=== PATIENT | female | born 1995 | race Caucasian/White ===

== ENCOUNTER 2016-06-09 09:36 | Inpatient (IN) | payer MEDICAID ==
[~2016-06-09] VITALS: Ht 175.3 cm; Wt 89.6 kg
[2016-06-09 09:51] VITALS: BP 137/81; PULSE 91; RESP 18
[2016-06-09] MEDS ORDERED: PRENAT PO (10:16)
[2016-06-09] MEDS: DEXTROSE 5%-LR 1,000 ML IV SCH ×2 (11:11→19:19)
--- NOTE | 2016-06-09 11:39 | RADRPT ---
PROCEDURE: US OB biophysical profile. CLINICAL INDICATION: decreased movements, contractions TECHNIQUE: Multiple sonographic images of the pelvis were obtained. The images were reviewed on a PACS workstation. COMPARISON: No prior studies are available for comparison. FINDINGS: There is a single viable intrauterine gestation. Cardiac activity is present with 146 beats per min false pass. There is a vertex presentation. The placenta is posterior. There is no evidence of placental abruption. There is a decreased amount of amniotic fluid with an JUMA = 6.0 cm. Biophysical profile: movement 2/2 tone 2/2. breathing 2/2 JUMA 2/2 Total 09/30 RPTAT: AA . IMPRESSION: Normal biophysical profile. Oligohydramnios. . .Sheng Mejia MD, Date Time Electronically viewed and signed by .Sheng Mejia MD, on 06/09/2016 11:38 .S/
[2016-06-09] MEDS ORDERED: METHYLERGONOVINE 0.2 MG INJ IM PRN (17:00)
[2016-06-09] MEDS ORDERED: OXYTOCIN 30 UNITS/LR 500 ML IV PRN (17:00)
[2016-06-09] MEDS ORDERED: MINERAL OIL LIGHT 10 ML VIAL TOP ONE (17:00)
[2016-06-09] MEDS ORDERED: LACTATED RINGER'S 1,000 ML IV PRN ×2 (17:00)
[2016-06-09] MEDS ORDERED: DEXTROSE 5%-LR 1,000 ML IV PRN (17:00)
[2016-06-09] MEDS ORDERED: CARBOPROST 250 MCG INJ IM PRN (17:00)
[2016-06-09] MEDS ORDERED: DINOPROSTONE 10 MG VAG SUPP VAG SCH (17:00)
[2016-06-09] MEDS ORDERED: MISOPROSTOL 200 MCG TAB PR PRN (17:00)
[2016-06-09] MEDS ORDERED: OXYTOCIN 30 UNITS/LR 500 ML IV SCH (17:00)
[2016-06-09] MEDS ORDERED: BUTORPHANOL 2 MG INJ IV PRN (17:00)
[2016-06-09] MEDS ORDERED: IBUPROFEN 600 MG TAB PO PRN (17:00)
[2016-06-09] MEDS ORDERED: LIDOCAINE 1% (MPF) 30 ML INJ INJ PRN (17:00)
--- NOTE | 2016-06-09 17:02 | TRIAGE ---
OB Triage Datetime Report Generated by CPN: 06/09/2016 17:01 Datetime: 06/09/2016 16:55 Pain Assessment Pain Scale: 0 Pain Presence: None/Denies Pain Relief Measures: Comfort Measures Datetime: 06/09/2016 16:49 Time of Arrival: 06/09/2016 16:49 EGA: 39.5 Arrived By: Ambulatory Arrived From: TRIAGE Datetime: 06/09/2016 16:44 Labor Evaluation Frequency: 10 Monitor Mode: External Duration (sec)2399: 60-90 Quality: Mild Pattern: Normal: <= 5 Contractions in 10 Minutes Resting Tone [place]: Relaxed Heart Rate FHR Baseline Rate: 135 FHR Baseline Changes: No Baseline Change Variability: Moderate 6-25 bpm Accelerations: 15X15 Decelerations: Late Comments: Lx1 Datetime: 06/09/2016 16:00 Labor Evaluation Frequency: 2-10 Monitor Mode: External Duration (sec)2399: 50-70 Quality: Mild Pattern: Normal: <= 5 Contractions in 10 Minutes Resting Tone [place]: Relaxed Heart Rate FHR Baseline Rate: 135 FHR Baseline Changes: No Baseline Change Variability: Moderate 6-25 bpm Accelerations: 15X15 Decelerations: Variable Category: Category II Comments: Vx1 Datetime: 06/09/2016 15:24 Vaginal Exam Dilatation (cms): 0.0 Effacement (%): 50 Station: -2 Exam By: CKUNIYOSHI Vaginal Bleeding: None Cervix, Consistency: Moderate Cervix, Position: Posterior Datetime: 06/09/2016 15:15 ROM Test Kit: Negative Datetime: 06/09/2016 15:00 Labor Evaluation Frequency: 2-5 Monitor Mode: External Quality: Mild Pattern: Normal: <= 5 Contractions in 10 Minutes Resting Tone [place]: Relaxed Contraction Comments: NOT READING ALL CONTRACTIONS - MONITOR FLIPPED Heart Rate FHR Baseline Rate: 135 FHR Baseline Changes: No Baseline Change Variability: Moderate 6-25 bpm Accelerations: 15X15 Decelerations: None Pain Assessment Pain Scale: 7 Pain Presence: Intermittent Pain Type: Cramping; Contraction Pain Location: Abdomen; Back Datetime: 06/09/2016 14:00 Stage of : OB Triage Labor Evaluation Frequency: 2-5 Monitor Mode: External Duration (sec)2399: 50-90 Quality: Mild Pattern: Normal: <= 5 Contractions in 10 Minutes Resting Tone [place]: Relaxed Heart Rate FHR Baseline Rate: 135 FHR Baseline Changes: No Baseline Change Variability: Moderate 6-25 bpm Accelerations: 15X15 Decelerations: None Pain Assessment Pain Scale: 8 Pain Presence: Intermittent Pain Type: Cramping; Contraction Pain Location: Abdomen; Back Datetime: 06/09/2016 13:00 Labor Evaluation Frequency: 2-5 Monitor Mode: External Duration (sec)2399: 60-90 Quality: Mild Pattern: Normal: <= 5 Contractions in 10 Minutes Resting Tone [place]: Relaxed Heart Rate FHR Baseline Rate: 135 Monitor Mode: External US FHR Baseline Changes: No Baseline Change Variability: Moderate 6-25 bpm Accelerations: 15X15 Decelerations: None Datetime: 06/09/2016 12:02 Labor Evaluation Frequency: 2-7 Monitor Mode: External Duration (sec)2399: 40-80 Quality: Mild Pattern: Normal: <= 5 Contractions in 10 Minutes Resting Tone [place]: Relaxed Heart Rate FHR Baseline Rate: 135 FHR Baseline Changes: No Baseline Change Variability: Moderate 6-25 bpm Accelerations: 15X15 Decelerations: None Category: Category I Pain Presence: Intermittent Pain Type: Cramping; Contraction; Pressure Pain Location: Abdomen; Back Datetime: 06/09/2016 12:01 Vaginal Exam Dilatation (cms): 0.0 Effacement (%): 50 Station: -3 Exam By: CKUNIYOSHI Vaginal Bleeding: None Cervix, Consistency: Soft Cervix, Position: Posterior Datetime: 06/09/2016 10:29 Labor Evaluation Frequency: 2-5 Monitor Mode: External Duration (sec)2399: 50-80 Quality: Mild Pattern: Normal: <= 5 Contractions in 10 Minutes Resting Tone [place]: Relaxed Heart Rate FHR Baseline Rate: 135 Monitor Mode: External US FHR Baseline Changes: No Baseline Change Variability: Moderate 6-25 bpm Accelerations: 10X10 Decelerations: Late; Variable Category: Category II Comments: PERIODS OF MINIMAL VARIABLITY, WITH BASELINE OF 150BPM Pain Assessment Pain Scale: 8 Pain Presence: Constant Pain Type: Cramping; Pressure Pain Location: Abdomen; Back Pain Assessment Comments: PT REPORTS PAIN HAS INCREASED. Datetime: 06/09/2016 10:03 Vaginal Exam Dilatation (cms): 0.0 Effacement (%): 0 Station: -3 Exam By: CK Vaginal Bleeding: None Nitrazine: Negative Cervix, Consistency: Soft Cervix, Position: Posterior Datetime: 06/09/2016 09:55 Stage of : OB Triage Assessment Type: Triage Maternal Assessment Level of Consciousness: Fully Conscious Headache: Denies Blurred Vision: No Respiratory Effort: Unlabored; Regular Rhythm; Equal Expansion Breath Sounds, Left: Clear and Equal Breath Sounds, Right: Clear and Equal Nausea/Vomiting: Denies RUQ Epigastric Pain: Denies Lower Extremities Edema: None Degree: None Upper Extremities Edema: None Degree: None Facial Edema: None Temperature Route: Oral Fall Risk Assessment History of Falling: (0) No Secondary Diagnosis: (0) No Ambulatory Aid: (0) Bedrest/Nurse Assist IV Therapy: (0) No Gait: (0) Normal/Bedrest/Immobile Mental Status: (0) Oriented to Own Ability Fall Score: 0 Fall Risk Score Definition: No Risk: No action required Pain Assessment Pain Scale: 7 Pain Presence: Constant Pain Type: Cramping; Pressure Pain Location: Back Datetime: 06/09/2016 09:53 Time of Arrival: 06/09/2016 09:29 EGA: 39.5 Arrived By: Wheelchair Arrived From: Home Chief Complaint: POSSIBLE SROM @0830 WITH NO FURTHER LEAKING; CONSTANT LOWER BACK PAIN OF 7/10, ST ARTING @0830; OCCASSIONAL Movement: Present Contractions: Irregular Time Contractions Began: 06/09/2016 09:00 Rupture of Membranes: Unsure Vaginal Bleeding: None Vaginal Discharge: Denies Abdominal Trauma: Not Applicable Patient Complaints: Back Pain; Other Time Provider Notified: 06/09/2016 10:52 Provider Notified: DR. GUZMAN Initial Plan: R/O LABOR, R/O SROM; EFM x2, SVE, NITRAZINE Datetime: 06/09/2016 09:52 Presentation 'A': Cephalic
[2016-06-09 17:05] LABS: ADD SCAN DIFF NO
[2016-06-09 17:09] LABS: BASOPHILS % 0.4 % (0.0-2.0); EOSINOPHILS # 0.1 10^3/ul (0.0-0.5); EOSINOPHILS % 1.1 % (0.0-7.0); HEMATOCRIT 36.1 % (37.0-47.0); HEMOGLOBIN 11.8 g/dl (12.0-16.0); LYMPHOCYTES # 1.6 10^3/ul (0.8-2.9); LYMPHOCYTES % 20.5 % (18.0-55.0); MEAN CORPUSCULAR HEMOGLOBIN 29.7 pg (29.0-33.0); MEAN CORPUSCULAR HGB CONC 32.7 g/dl (32.0-37.0); MEAN CORPUSCULAR VOLUME 90.9 fl (72.0-104.0); MEAN PLATELET VOLUME 11.6 fl (7.4-10.4); MONOCYTE # 0.7 10^3/ul (0.3-0.9); MONOCYTES % 8.3 % (0.0-13.0); NEUTROPHIL # 5.4 10^3/ul (1.6-7.5); NEUTROPHILS % 69.2 % (30.0-74.0); PLATELET COUNT 185 10^3/UL (140-415); RED BLOOD COUNT 3.97 10^6/ul (4.20-5.40); RED CELL DISTRIBUTION WIDTH 13.9 % (11.5-14.5); WHITE BLOOD COUNT 7.9 10^3/ul (4.8-10.8)
[2016-06-09 17:21] LABS: INR 0.97; PROTIME 12.9 Sec (12.2-14.2)
[2016-06-09 17:22] LABS: PARTIAL THROMBOPLASTIN TIME 29.2 Sec (25.0-35.0)
[2016-06-09] MEDS ORDERED: DINOPROSTONE 10 MG VAG SUPP VAG ONE (21:30)
[2016-06-09] MEDS: BUTORPHANOL 2 MG INJ IV PRN (23:50)
[2016-06-10] MEDS: BUTORPHANOL 2 MG INJ IV PRN (02:21)
[2016-06-10] MEDS ORDERED: NALOXONE (0.4 MG/ML) INJ IV PRN (04:00)
[2016-06-10] MEDS ORDERED: FENTAnyl 2MCG/ML-ROPIV 0.2% 100 ML BAG EPI SCH (04:00)
[2016-06-10] MEDS ORDERED: EPHEDrine SULFATE 50 MG/5 ML SYG IV PRN (04:00)
[2016-06-10] MEDS: ONDANSETRON 4 MG INJ IV PRN ×2 (07:39→11:05)
[2016-06-10] MEDS ORDERED: OXYTOCIN 30 UNITS/LR 500 ML IV SCH (08:00)
[2016-06-10] MEDS: DEXTROSE 5%-LR 1,000 ML IV SCH (08:01)
--- NOTE | 2016-06-10 11:55 | LDN ---
Date/Time of Note Date/Time of Note DATE: 06/10/16 TIME: 11:49 Delivery Summary Normal spontaneous vaginal delivery of a baby girl from 0A position shoulders delivered without any difficulty rest of the baby's body follow cord was clamped after stopped pulsation nasal oropharyngeal suction was performed by the team present placenta spontaneous expulsion inspected complete blood loss 200 cc patient sustained very small left periurethral laceration repaired with 4-0 chromic catgut blood loss 200 cc Weeks of Gestation 39 weeks 4 days in active labor Placenta Delivered: Spontaneously Meconium: none Episiotomy: No Laceration repair: Left periurethral laceration repaired with 4-0 chromic catgut Anesthesia type: Epidural Estimated blood loss: 200 Sponge & Needle done & correct: Yes All needle counts correct: Yes Any foreign bodies felt in the: No Problems: Infant Delivery Information Sex Sex: female Apgars 1 Minute: 9 5 Minute: 9 Suctioning Nose & mouth suctioned at marychuy: Yes Delee suction performed: No Umbilical Cord Umbilical cord with: 3 Vessels Cord presentations: nuchal cord Cord Blood was obtained: Yes ADITI GUZMAN MD Jun 10, 2016 11:54
--- NOTE | 2016-06-10 12:01 | HP ---
Date/Time of Note Date/Time of Note DATE: 06/10/16 TIME: 11:55 OB - History Hx of Present Free Text/Dictation 20 years old female 1 para 0 EDC June 11, 2016 admitted to the hospital in early labor on admission pelvic examination cervix closed effacement 50% vertex at -2 station ultrasound report indicated low JUMA decided to admit patient she may requires augmentation Chief Complaint: Early labor low JUMA Estimated Due Date: Jun 11, 2016 : 1 Para: 0 Care: Good Care Obstetrical Complications: None Medical Complications: None Past Family/Social History * Past Medical, Surgical, Family and Obstetric Histories reviewed from chart. Rubella: immune RPR/VDRL: Negative GBS Status: Negative HBsAG: Negative OB Admission Exam Vital Signs Vital Signs Vital Signs Date Time Temp Pulse Resp B/P Pulse Ox O2 Delivery O2 Flow Rate FiO2 06/09/16 09:51 98.6 91 18 137/81 97 Room Air Physical Exam HEENT: WNL Heart: Rhythm Normal Lungs: Clear, Equal Extremities: Normal Cervical Dilatation: None Effacement: 50% Station: -2 Membranes: Intact Heart Rate: 130's Decelerations: No Decelerations Varibility: Minimum Intensity: Mild Last 72 hours Lab Results CBC & BMP 06/09/16 11:10 ADITI GUZMAN MD Jun 10, 2016 12:01
[2016-06-10] MEDS ORDERED: DIBUCAINE 1% 30 GM OINT PR PRN (14:30)
[2016-06-10] MEDS ORDERED: ACETAMINOPHEN/CODEINE #3 TAB PO PRN (14:30)
[2016-06-10] MEDS ORDERED: ACETAMINOPHEN 325 MG TAB PO PRN (14:30)
[2016-06-10] MEDS ORDERED: OXYCODONE/ASPIRIN (4.88/325) TAB PO PRN ×2 (14:30)
[2016-06-10] MEDS ORDERED: ONDANSETRON 4 MG INJ IV PRN (14:30)
[2016-06-10] MEDS ORDERED: WITCH HAZEL/GLYCERIN PAD PR PRN (14:30)
[2016-06-10] MEDS ORDERED: LANOLIN 7 GM TUBE TOP PRN (14:30)
[2016-06-10] MEDS ORDERED: BENZOCAINE 20% 56 ML SPRAY TOP PRN (14:30)
[2016-06-10 14:40] VITALS: BP 129/71; PULSE 84; RESP 17
[2016-06-10 16:00] VITALS: BP 132/77; PULSE 85; RESP 18
[2016-06-10] MEDS: OXYTOCIN 30 UNITS/LR 500 ML IV SCH ×2 (16:28→18:23)
[2016-06-10] MEDS: IBUPROFEN 600 MG TAB PO SCH ×2 (17:17→23:35)
[2016-06-10 20:00] VITALS: BP 128/60; PULSE 81; RESP 19
[2016-06-10] MEDS: SENNA/DOCUSATE NA (8.6MG/50MG) TAB PO SCH (20:59)
[2016-06-10 23:30] VITALS: BP 129/76; PULSE 81; RESP 19
[2016-06-11 03:45] VITALS: BP 116/56; PULSE 74; RESP 19
[2016-06-11] MEDS: IBUPROFEN 600 MG TAB PO SCH ×4 (05:47→23:34)
[2016-06-11 08:00] VITALS: BP 128/80; PULSE 89; RESP 19
[2016-06-11] MEDS: SENNA/DOCUSATE NA (8.6MG/50MG) TAB PO SCH ×2 (09:03→20:58)
[2016-06-11 10:13] LABS: ADD SCAN DIFF NO
--- NOTE | 2016-06-11 10:15 | DS ---
Date/Time of Note Date/Time of Note DATE: 06/11/16 TIME: 10:12 Obstetrical Discharge Record Final Diagnosis Final Diagnosis: Term delivered Vaginal Delivery Obstetrical Delivery: Spontaneous Condition on Discharge Physical Assessment Last Vitals: day 2 Afebrile VSs abdomen soft uterus firm lochia normal extremity normal patient discharged home with follow-up instruction to be seen at the clinic in 2 weeks Voiding: Yes Bowel Movement: Yes Breast: Soft, non-tender Fundus: Firm Calf Tenderness: No Patient Condition: Good ADITI GUZMAN MD Jun 11, 2016 10:14
--- NOTE | 2016-06-11 10:17 | PN ---
Date/Time of Note Date/Time of Note DATE: 06/11/16 TIME: 10:15 OB Subjective Subjective Subjective day 1 Afebrile abdomen soft uterus firm lochia normal extremity normal plan of discharge a.m. discussed with patient follow-up care with recommendation to be seen at the clinic in 2 weeks ADITI GUZMAN MD Jun 11, 2016 10:17
[2016-06-11 10:26] LABS: BASOPHILS % 0.2 % (0.0-2.0); EOSINOPHILS # 0.1 10^3/ul (0.0-0.5); HEMATOCRIT 31.2 % (37.0-47.0); HEMOGLOBIN 10.2 g/dl (12.0-16.0); LYMPHOCYTES # 2.3 10^3/ul (0.8-2.9); LYMPHOCYTES % 21.2 % (18.0-55.0); MEAN CORPUSCULAR HEMOGLOBIN 29.7 pg (29.0-33.0); MEAN CORPUSCULAR HGB CONC 32.7 g/dl (32.0-37.0); MEAN CORPUSCULAR VOLUME 90.7 fl (72.0-104.0); MEAN PLATELET VOLUME 11.5 fl (7.4-10.4); MONOCYTE # 0.7 10^3/ul (0.3-0.9); MONOCYTES % 6.2 % (0.0-13.0); NEUTROPHIL # 7.6 10^3/ul (1.6-7.5); NEUTROPHILS % 70.9 % (30.0-74.0); PLATELET COUNT 147 10^3/UL (140-415); RED BLOOD COUNT 3.44 10^6/ul (4.20-5.40); RED CELL DISTRIBUTION WIDTH 14.2 % (11.5-14.5); WHITE BLOOD COUNT 10.7 10^3/ul (4.8-10.8)
[2016-06-11] MEDS: ACETAMINOPHEN/CODEINE #3 TAB PO PRN ×2 (12:09→17:50)
[2016-06-11 16:00] VITALS: BP 115/67; RESP 18
[2016-06-11 19:45] VITALS: BP 120/71; PULSE 73; RESP 17
[2016-06-12 03:30] VITALS: BP 124/72; PULSE 86; RESP 20
[2016-06-12] MEDS: IBUPROFEN 600 MG TAB PO SCH ×3 (05:32→17:03)
[2016-06-12 08:08] VITALS: BP 121/57; PULSE 77; RESP 19
[2016-06-12] MEDS ORDERED: DIPHTH/TET/ACEL PERTUSS (ADULT) 0.5 ML VIAL IM* ONE (09:00)
[2016-06-12] MEDS ORDERED: MEASLES,MUMPS,RUBELLA VACCINE INJ SC* ONE (09:00)
[2016-06-12] MEDS: SENNA/DOCUSATE NA (8.6MG/50MG) TAB PO SCH (11:11)
[2016-06-12 16:00] VITALS: BP 123/80; PULSE 65; RESP 18
== END 2016-06-12 17:55 | disposition home or self-care (01) | DRG 775 ==
LOC: OBT 09:36 → L-D 09:37 → OBT 16:28 → L-D 16:30 → PP1 06-10 14:11
PROVIDERS: ADMIT Obstetrics & Gynecology; ATTEND Obstetrics & Gynecology
PROC: 10E0XZZ Delivery of Products of Conception, External Approach (ICD-10-PCS; principal; 2016-06-10)
PROC: 0HQ9XZZ Repair Perineum Skin, External Approach (ICD-10-PCS; 2016-06-10)
DX: O71.82 Other specified trauma to perineum and vulva (principal); O69.81X0 Labor and delivery complicated by cord around neck, without compression, not applicable or unspecified; Z3A.39 39 weeks gestation of pregnancy; Z37.0 Single live birth
CPT/HCPCS: 62319; 76818; 84112; 85025; 85610; 85730; 86592; 86900; 86901; 87340; 90715; 96360; 96361; G0463; J2405; J2590; J3010; J7121